=== PATIENT | female | born 1965 | race African-American/Black ===

== ENCOUNTER 2016-02-11 15:34 | Emergency (ER) | payer OTHER, SELFPAY ==
--- NOTE | 2016-02-11 16:55 | ERRECORD ---
[facility] EMERGENCY RECORD HPI SHOULDER (15:59 [facility]) CHIEF COMPLAINT: Patient presents for evaluation of pain, to the left shoulder. HISTORIAN: History provided by patient, 50F presents to the ED with complaints of left arm pain and numbness. She was an inpatient at [facility] with a diagnosis of pulmonary embolism. During her stay she states a contrasted CT study infiltrated through a 22 gauge iV catheter and she has pain over her medial anterior left elbow. Since discharge she has also had numbness over left lateral left arm, primarily distal, but also occasionally proximal shoulder. She was seen by PMD today who ordered an outpatient Xray. She was unable to pay for the outpatient xray so she checked into the ED. Denies chest pain. MECHANISM OF INJURY: Unknown mechanism. LOCATION: Symptoms are localized, on the left. QUALITY: Pain is dull in nature. TIME COURSE: Gradual onset of symptoms, There has been no change in the patient's symptoms over time. ASSOCIATED WITH: infiltration wound on medial aspect of AC fossa on left arm. ROS (16:02 [facility]) CONSTITUTIONAL: Negative constitutional review of systems, Historian denies chills, denies fever. EYES: Negative eye review of systems, Historian denies eye pain, denies vision changes. ENT: Negative ears, nose, throat review of systems, Historian denies rhinorrhea, denies sore throat, denies voice changes. CARDIOVASCULAR: Negative cardiovascular review of systems, Historian denies chest pain, denies palpitations. RESPIRATORY: Negative respiratory review of systems, Historian denies cough, denies shortness of breath. GI: Negative gastrointestinal review of systems, Historian denies abdominal pain, denies constipation, denies diarrhea, denies nausea, denies vomiting. GENITOURINARY FEMALE: Negative genitourinary review of systems, Historian denies dysuria, denies frequency. MUSCULOSKELETAL: reports left arm numbness over radial aspect of left arm. SKIN: Negative skin review of systems, Historian denies rash, denies skin changes. NEUROLOGIC: Negative neurologic review of systems, Historian denies headache, denies mental status changes, denies paralysis, denies paresthesias, denies sensory changes. HEMO/LYMPHATIC: Normal hematologic/lymphatic system review, Historian denies abnormal blood clotting. ALLERGIC/IMMUNOLOGIC: Normal allergy/immunologic system review, Historian denies frequent infections. PAST MEDICAL HISTORY (15:56 [facility]) MEDICAL HISTORY: Flu vaccine up to date, Tetanus not up to &a-1R&a+25V*p+0X*v5137Z*c202B*c15G*c2P*p-0X&a-25V&a+1R Name: Charlie Fox : 1965 F50 MedRec: [id number] AcctNum: [id number] Prepared: WedFeb 11, 2016 17:00 by Interface Page 1 of 4 pMD [facility] EMERGENCY RECORD date, Pneumococcal vaccine not up to date, Past medical history includes gastrointestinal disease, gastroesophageal reflux disease, Past medical history includes history of hypertension. DVT. FEMALE SURGICAL HISTORY: Left Knee sx. PSYCHIATRIC HISTORY: No previous psychiatric history. SOCIAL HISTORY: Patient drinks socially, rarely, Patient denies drug use, Patient has no smoking history. KNOWN ALLERGIES ALLERGIES: (Unconfirmed) FOOD ALLERGIES: (Unconfirmed) LATEX ALLERGY? (Unconfirmed) lisinopril: Reaction: Nausea, Severity: Mild, Source: Patient No Known Drug Allergy (Unconfirmed) CURRENT MEDICATIONS No recorded medications VITAL SIGNS VITAL SIGNS: BP: 161/105, Pulse: 87, Resp: 20 (Non-Labored), Temp: 99.2 (Oral), Pain: 8, O2 sat: 98 on Room Air, Time: 02/11/2016 15:51. (15:51 WJAN) BP: 152/87, Pulse: 82, Resp: 20, Pain: 8, O2 sat: 99 on Room Air, Time: 02/11/2016 16:16. (16:16 AHOO) BP: 170/88, Pulse: 82, Resp: 20, Temp: 99.2 (Oral), Pain: 8, O2 sat: 99.2 on Room Air, Time: 02/11/2016 16:42. (16:42 AHOO) PHYSICAL EXAM (16:02 [facility]) CONSTITUTIONAL: Vital signs reviewed, Patient afebrile, Pulse normal, Blood pressure normal, Respiratory rate normal, Patient appears non toxic, Patient appears pain free, Patient alert and oriented to person, place and time. HEAD: Head exam normal, Head exam included findings of head atraumatic, normocephalic. EYES: Eye exam normal, Eye exam included findings of eyelids normal to inspection, Pupils equally round and reactive to light, Extraocular muscles intact, no nystagmus. ENT: ENT exam normal, Ear exam normal, external ear normal, tympanic membranes normal, no bleeding, Pharynx exam normal, Uvula exam normal, Tonsil exam normal, Mouth exam normal, mucous membranes moist, teeth normal. NECK: Neck exam normal, Neck exam included findings of normal range of motion, Trachea midline, no meningeal signs, no cervical adenopathy, no tenderness. RESPIRATORY CHEST: Respiratory and chest exam normal, Respiratory exam included findings of no respiratory distress, Breath sounds clear. CARDIOVASCULAR: Cardiovascular assessment normal, Cardiovascular exam included findings of heart rate regular rate and rhythm, Heart &a-1R&a+25V*p+0X*l5610W*c202B*c15G*c2P*p-0X&a-25V&a+1R Name: Charlie Fox : 1965 F50 MedRec: [id number] AcctNum: [id number] Prepared: Arsalan Feb 11, 2016 17:00 by Interface Page 2 of 4 pMD [facility] RECORD sounds normal. ABDOMEN FEMALE: Abdominal exam included findings of abdomen nontender, Bowel sounds normal, no distension, no mass, no pulsatile masses, no peritoneal signs, no rigidity, no guarding, no rebound, Rovsing's sign absent. BACK: Back exam normal, Back exam included findings of normal inspection, range of motion normal, no tenderness. UPPER EXTREMITY: medial aspect of AC fossa has an infiltration injury with some surrounding erythema and central area of skin sloughing. radial aspect of same arm has reported numbness. No pain to palpation, no signs of compartment syndrome. LOWER EXTREMITY: Lower extremity exam normal, Lower extremity exam included findings of inspection normal, Range of motion normal, Motor strength normal, Sensation intact, Posterior tibial pulse normal, Pedal pulse normal. NEURO: Neuro exam normal, Neuro exam findings include patient oriented to person, place and time, Speech normal, Gait normal, Cranial nerves intact, no focal motor deficits, no focal sensory deficits. SKIN: Skin exam normal, Skin exam included findings of skin warm, dry, and normal in color, no rash, left arm medial AC fossa has burned appearance with surrounding erythema. PSYCHIATRIC: Psychiatric exam normal, Normal affect. EKG INTERPRETATION (16:43 [facility]) 12 LEAD EKG INTERPRETATION: Interpretation: normal EKG, Conduction normal, ST segments normal. DOCTOR NOTES (16:40 [facility]) TEXT: patient presented with left arm neuropathy. Minimal concern for cardiac etiology based on history and recent negative inpatient cardiac workup. Believe the neuropathy is either localized neuropraxia secondary to the contrast infiltration or also possibly cervical radiculopathy. She has no signs of arterial compromise, and the infiltration injury appears to be improving. Appropriate for outpatient follow up. PATIENT PLAN: The patient will be discharged, The patient will follow up with primary care physician. DATA REVIEWED: Xray data reviewed, Reviewed EKG. PROBLEM LIST No recorded problems DIAGNOSIS (16:38 [facility]) FINAL: PRIMARY: RADICULOPATHY SITE UNSPECIFIED. PRESCRIPTION No recorded prescriptions DISPOSITION &a-1R&a+25V*p+0X*v6586M*c202B*c15G*c2P*p-0X&a-25V&a+1R Name: Dominique Charlie : 1965 [facility] MedRec: [id number] AcctNum: [id number] Prepared: WedFeb 11, 2016 17:00 by Interface Page 3 of 4 pMD [facility] EM[facility] RECORD PATIENT: Disposition Type: Discharge, Disposition: *Discharge Home. (16:38 [facility]) Patient left the department. (16:57 [facility]) Logan: MARCIA=BABS Quintana, May [facility]=MD Miranda, Jose HEART=ELYSE Dueñas, Alaina &a-1R&a+25V*p+0X*v7416M*c202B*c15G*c2P*p-0X&a-25V&a+1R Name: Charlie Fox : 1965 [facility] MedRec: [id number] AcctNum: [id number] Prepared: WedFeb 11, 2016 17:00 by Interface Page 4 of 4 pMD MTDD
--- NOTE | 2016-02-11 17:03 | PICIS ---
[facility]ORD TRIAGE (WedFeb 11, 2016 15:53 [facility]) TRIAGE NOTES: Pt reports recent IV and CT, sore at IV site. PCP ordered xray of site. (WedFeb 11, 2016 15:53 WJAN) PATIENT: NAME: Charlie Fox, AGE: 50, GENDER: female, : Sat 1965, TIME OF GREET: WedFeb 11, 2016 15:35, PREFERRED LANGUAGE: Arabic, ETHNICITY: Not or , ECODE BILLING MAP: [facility], SSN: [id number], Zip Code: [address], KG WEIGHT: 119.75, PHONE: , , , PERSON ID: [id number], PCP: MD Lino Kyle. (WedFeb 11, 2016 15:53 WJAN) COMPLAINT: Left Arm Pain. (WedFeb 11, 2016 15:53 WJAN) ADMISSION: URGENCY: 3 Urgent, ADMISSION SOURCE: Home, TRANSPORT: Walk-in, BED: TRIAGE. (WedFeb 11, 2016 15:53 WJAN) IMMUNIZATIONS: Flu vaccine up to date, Tetanus not up to date, Pneumococcal vaccine not up to date. (15:56 WJAN) SIRS SCORING: Heart Rate 55-109 (0), Temp range 96.8-101.1 (0), respiratory rate 12-24 (0), Mental Status altered: no (0), Infection or Suspected Infection: No. (15:56 WJAN) TRIAGE SCREENING: Patient denies suicidal ideation, Patient denies presence of domestic violence. (15:56 WJAN) LMP: Last menstrual period: 02/08/2016. (15:56 WJAN) PROVIDERS: TRIAGE NURSE: Alaina Dueñas RN. (WedFeb 11, 2016 15:53 WJAN) VITAL SIGNS: BP 161/105, Pulse 87, Resp 20, (Non-Labored), Temp 99.2, (Oral), Pain 8, O2 Sat 98, on Room Air, Time 02/11/2016 15:51. (15:51 WJAN) PREVIOUS VISIT ALLERGIES: No Known Drug Allergy. (WedFeb 11, 2016 15:53 WJAN) No Known Drug Allergy. (15:56 WJAN) KNOWN ALLERGIES ALLERGIES: (Unconfirmed) FOOD ALLERGIES: (Unconfirmed) LATEX ALLERGY? (Unconfirmed) lisinopril: Reaction: Nausea, Severity: Mild, Source: Patient No Known Drug Allergy (Unconfirmed) CURRENT MEDICATIONS No recorded medications VITAL SIGNS VITAL SIGNS: BP: 161/105, Pulse: 87, Resp: 20 (Non-Labored), Temp: 99.2 (Oral), Pain: 8, O2 sat: 98 on Room Air, Time: 02/11/2016 15:51. (15:51 WJAN) BP: 152/87, Pulse: 82, Resp: 20, Pain: 8, O2 sat: 99 on Room Air, Time: 02/11/2016 16:16. (16:16 AHOO) BP: 170/88, Pulse: 82, Resp: 20, Temp: 99.2 (Oral), Pain: 8, O2 sat: 99.2 on Room Air, Time: 02/11/2016 16:42. (16:42 AHOO) &a-1R&a+25V*p+0X*a2930S*c202B*c15G*c2P*p-0X&a-25V&a+1R Name: Charlie Fox : 1965 F50 MedRec: [id number] AcctNum: [id number] Prepared: Arsalan Feb 11, 2016 17:05 by Interface Page 1 of 5 D [facility] EMERGENC[facility] RECORD NURSING PROCEDURE: EKG CHART (16:26 AHOO) PATIENT IDENTIFIER: Patient actively involved in identification process, Patient's identity verified by patient stating name, Patient's identity verified by patient stating date, Patient's identity verified by hospital ID bracelet. EKG: EKG indicated for left arm pain, 12 lead EKG performed on the left chest, done by KAITLIN HUMMEL LVN, first EKG. FOLLOW-UP: After procedure, EKG for interpretation given to Dr. DR CHAND. NURSING PROCEDURE: TRANSPORT TO TESTS PATIENT IDENTIFIER: Patient's identity verified by patient stating name, Patient's identity verified by patient stating date, Patient's identity verified by hospital ID bracelet. (16:04 WJAN) TRANSPORT TO TESTS: Patient transported to x-ray, via wheelchair, Accompanied by x-ray food service technician. (16:04 [facility]FE[facility]) FOLLOW-UP: After procedure, patient returned to emergency department. (16:15 ALVARADO) SAFETY: Side rails up, Cart/Stretcher in lowest position, Family at bedside, Call light within reach, Hospital ID band on. (16:04 [facility]FEB) ORDER DETAILS Order Name: EKG 12 Lead in Emergency Room, Status: Active, Time: 16:37 02/11/2016, User: ALVARADO, - Ordered for: MD Chand Jason, - Entered by: BABS Hummel, May - WedFeb 11, 2016 16:37, - Quantity: 1, Order Name: XR Cervical Spine 4 View Min, Status: Active, Time: 15:57 02/11/2016, User: DAVE, - Ordered for: MD Chand Jason, - Entered by: MD Chand Jason - WedFeb 11, 2016 15:57, - Quantity: 1. HPI SHOULDER (15:59 DAVE) CHIEF COMPLAINT: Patient presents for evaluation of pain, to the left shoulder. HISTORIAN: History provided by patient, 50F presents to the ED with complaints of left arm pain and numbness. She was an inpatient at [facility] with a diagnosis of pulmonary embolism. During her stay she states a contrasted CT study infiltrated through a 22 gauge iV catheter and she has pain over her medial anterior left elbow. Since discharge she has also had numbness over left lateral left arm, primarily distal, but also occasionally proximal shoulder. She was seen by PMD today who ordered an outpatient Xray. She was unable to pay for the outpatient xray so she checked into the ED. Denies chest pain. MECHANISM OF INJURY: Unknown mechanism. LOCATION: Symptoms are localized, on the &a-1R&a+25V*p+0X*o3076Q*c202B*c15G*c2P*p-0X&a-25V&a+1R Name: Charlie Fox : 1965 F50 MedRec: [id number] AcctNum: [id number] Prepared: WedFeb 11, 2016 17:05 by Interface Page 2 of 5 pMD [facility] EMERGENC[facility] RECORD left. QUALITY: Pain is dull in nature. TIME COURSE: Gradual onset of symptoms, There has been no change in the patient's symptoms over time. ASSOCIATED WITH: infiltration wound on medial aspect of AC fossa on left arm. ROS (16:02 [facility]) CONSTITUTIONAL: Negative constitutional review of systems, Historian denies chills, denies fever. EYES: Negative eye review of systems, Historian denies eye pain, denies vision changes. ENT: Negative ears, nose, throat review of systems, Historian denies rhinorrhea, denies sore throat, denies voice changes. CARDIOVASCULAR: Negative cardiovascular review of systems, Historian denies chest pain, denies palpitations. RESPIRATORY: Negative respiratory review of systems, Historian denies cough, denies shortness of breath. GI: Negative gastrointestinal review of systems, Historian denies abdominal pain, denies constipation, denies diarrhea, denies nausea, denies vomiting. GENITOURINARY FEMALE: Negative genitourinary review of systems, Historian denies dysuria, denies frequency. MUSCULOSKELETAL: reports left arm numbness over radial aspect of left arm. SKIN: Negative skin review of systems, Historian denies rash, denies skin changes. NEUROLOGIC: Negative neurologic review of systems, Historian denies headache, denies mental status changes, denies paralysis, denies paresthesias, denies sensory changes. HEMO/LYMPHATIC: Normal hematologic/lymphatic system review, Historian denies abnormal blood clotting. ALLERGIC/IMMUNOLOGIC: Normal allergy/immunologic system review, Historian denies frequent infections. PAST MEDICAL HISTORY (15:56 WJAN) MEDICAL HISTORY: Flu vaccine up to date, Tetanus not up to date, Pneumococcal vaccine not up to date, Past medical history includes gastrointestinal disease, gastroesophageal reflux disease, Past medical history includes history of hypertension. DVT. FEMALE SURGICAL HISTORY: Left Knee sx. PSYCHIATRIC HISTORY: No previous psychiatric history. SOCIAL HISTORY: Patient drinks socially, rarely, Patient denies drug use, Patient has no smoking history. PHYSICAL EXAM (16:02 [facility]) CONSTITUTIONAL: Vital signs reviewed, Patient afebrile, Pulse normal, Blood pressure normal, Respiratory rate normal, Patient appears non toxic, Patient appears pain free, Patient alert and oriented to person, place and time. &a-1R&a+25V*p+0X*y4312V*c202B*c15G*c2P*p-0X&a-25V&a+1R Name: Charlie Fox : 1965 F50 MedRec: [id number] AcctNum: [id number] Prepared: Arsalan Feb 11, 2016 17:05 by Interface Page 3 of 5 D [facility] EMERGENC[facility] RECORD HEAD: Head exam normal, Head exam included findings of head atraumatic, normocephalic. EYES: Eye exam normal, Eye exam included findings of eyelids normal to inspection, Pupils equally round and reactive to light, Extraocular muscles intact, no nystagmus. ENT: ENT exam normal, Ear exam normal, external ear normal, tympanic membranes normal, no bleeding, Pharynx exam normal, Uvula exam normal, Tonsil exam normal, Mouth exam normal, mucous membranes moist, teeth normal. NECK: Neck exam normal, Neck exam included findings of normal range of motion, Trachea midline, no meningeal signs, no cervical adenopathy, no tenderness. RESPIRATORY CHEST: Respiratory and chest exam normal, Respiratory exam included findings of no respiratory distress, Breath sounds clear. CARDIOVASCULAR: Cardiovascular assessment normal, Cardiovascular exam included findings of heart rate regular rate and rhythm, Heart sounds normal. ABDOMEN FEMALE: Abdominal exam included findings of abdomen nontender, Bowel sounds normal, no distension, no mass, no pulsatile masses, no peritoneal signs, no rigidity, no guarding, no rebound, Rovsing's sign absent. BACK: Back exam normal, Back exam included findings of normal inspection, range of motion normal, no tenderness. UPPER EXTREMITY: medial aspect of AC fossa has an infiltration injury with some surrounding erythema and central area of skin sloughing. radial aspect of same arm has reported numbness. No pain to palpation, no signs of compartment syndrome. LOWER EXTREMITY: Lower extremity exam normal, Lower extremity exam included findings of inspection normal, Range of motion normal, Motor strength normal, Sensation intact, Posterior tibial pulse normal, Pedal pulse normal. NEURO: Neuro exam normal, Neuro exam findings include patient oriented to person, place and time, Speech normal, Gait normal, Cranial nerves intact, no focal motor deficits, no focal sensory deficits. SKIN: Skin exam normal, Skin exam included findings of skin warm, dry, and normal in color, no rash, left arm medial AC fossa has burned appearance with surrounding erythema. PSYCHIATRIC: Psychiatric exam normal, Normal affect. EVENTS TRANSFER: Triage to Emergency Triage. (WedFeb 11, 2016 15:53 WJAN) Emergency Triage to Emergency Room -01. (15:56 WJAN) Removed from Emergency Emergency Room -01. (16:57 AHOO) EKG INTERPRETATION (16:43 [facility]) 12 LEAD EKG INTERPRETATION: Interpretation: normal EKG, Conduction normal, ST segments normal. &a-1R&a+25V*p+0X*m0747J*c202B*c15G*c2P*p-0X&a-25V&a+1R Name: Charlie Fox : 1965 F50 MedRec: [id number] AcctNum: [id number] Prepared: WedFeb 11, 2016 17:05 by Interface Page 4 of 5 pMD [facility] EM[facility] RECORD DOCTOR NOTES (16:40 [facility]) TEXT: patient presented with left arm neuropathy. Minimal concern for cardiac etiology based on history and recent negative inpatient cardiac workup. Believe the neuropathy is either localized neuropraxia secondary to the contrast infiltration or also possibly cervical radiculopathy. She has no signs of arterial compromise, and the infiltration injury appears to be improving. Appropriate for outpatient follow up. PATIENT PLAN: The patient will be discharged, The patient will follow up with primary care physician. DATA REVIEWED: Xray data reviewed, Reviewed EKG. PROBLEM LIST No recorded problems DIAGNOSIS (16:38 [facility]) FINAL: PRIMARY: RADICULOPATHY SITE UNSPECIFIED. DISPOSITION PATIENT: Disposition Type: Discharge, Disposition: *Discharge Home. (16:38 [facility]) Patient left the department. (16:57 AHOO) INSTRUCTION (16:39 [facility]) DISCHARGE: RADICULOPATHY, CERVICAL. FOLLOWUP: MD Holland, [facility], [address] [place] [address], . SPECIAL: Follow up with Dr. Lino. Hot pack on posterior neck. Return to the ED if you develop worsening pain or numbness. PRESCRIPTION No recorded prescriptions ADMIN (16:43 [facility]) DIGITAL SIGNATURE: MD Chand Jason. Logan: [facility]=BABS Hummel, May [facility]=MD Chand Jason WJAN=ELYSE Dueñas, Alaina &a-1R&a+25V*p+0X*a9680Y*c202B*c15G*c2P*p-0X&a-25V&a+1R Name: Charlie Fox : 1965 F50 MedRec: [id number] AcctNum: [id number] Prepared: Arsalan Feb 11, 2016 17:05 by Interface Page 5 of 5 pMD MTDD
--- NOTE | 2016-02-11 20:33 | RAD ---
CERVICAL SPINE FIVE VIEWS 02/11/16 No acute fracture was appreciated, though the sensitivity of this study is slightly reduced. The pos terior elements of C7 are not seen optimally. The C1 to dens distance is normal and the soft tissues are normal in thickness. Disc space narrowing is present at C4-C5 and C6-C7. Anterior osteophytes are prominent at C4 and bel ow. The oblique views show neural foraminal narrowing bilaterally by osteophytes at C5-C5, probably a little worse on the left than the right. A lesser degree of narrowing is suggested at C3-C4 on the right. 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 POS: HOME
== END 2016-02-11 16:52 | disposition home or self-care (01) ==
LOC: BURERS 15:34
DX: M54.10 Radiculopathy, site unspecified (principal); K21.9 Gastro-esophageal reflux disease without esophagitis; Z86.718 Personal history of other venous thrombosis and embolism; Z79.01 Long term (current) use of anticoagulants; Z79.899 Other long term (current) drug therapy
CPT/HCPCS: 72050; 93005

== ENCOUNTER 2016-03-24 10:22 | Emergency (ER) | payer BC, SELFPAY ==
[2016-03-24] MEDS ORDERED: Acetaminophen/Codeine 30-300mg Tablet ONE (11:38)
== END 2016-03-24 12:08 | disposition home or self-care (01) ==
LOC: BURERS 10:22
DX: J02.8 Acute pharyngitis due to other specified organisms (principal); B97.89 Other viral agents as the cause of diseases classified elsewhere; K21.9 Gastro-esophageal reflux disease without esophagitis; I10 Essential (primary) hypertension; Z86.718 Personal history of other venous thrombosis and embolism; Z79.899 Other long term (current) drug therapy
CPT/HCPCS: 87430; 99283

== ENCOUNTER 2016-09-22 16:52 | Emergency (ER) | payer BC ==
[2016-09-22] MEDS ORDERED: Orphenadrine Citrate 60 MG/2 ML VIAL ONE (17:16)
[2016-09-22] MEDS ORDERED: Ketorolac Tromethamine 30 MG/ML VIAL ONE (17:16)
== END 2016-09-22 17:47 | disposition home or self-care (01) ==
LOC: BURERS 16:52
DX: G57.02 Lesion of sciatic nerve, left lower limb (principal); K21.9 Gastro-esophageal reflux disease without esophagitis; I10 Essential (primary) hypertension; F41.9 Anxiety disorder, unspecified; Z86.718 Personal history of other venous thrombosis and embolism
CPT/HCPCS: 96372; J1885; J2360

== ENCOUNTER 2019-03-14 14:31 | Emergency (ER) | payer MEDICARE ==
[2019-03-14] MEDS ORDERED: Tetracaine 0.5% OPHTH SOLN/PF 4 ML BOT ONE (14:41)
[2019-03-14] MEDS ORDERED: Fluorescein Opthalmic Strip ONE (14:41)
[2019-03-14] MEDS ORDERED: Neomycin-Polymyxin-Hc 7.5 ML BOT ONE (14:50)
== END 2019-03-14 14:55 | disposition home or self-care (01) ==
LOC: BURERS 14:31
DX: T15.12XA Foreign body in conjunctival sac, left eye, initial encounter (principal); K21.9 Gastro-esophageal reflux disease without esophagitis; I10 Essential (primary) hypertension; D64.9 Anemia, unspecified; G47.00 Insomnia, unspecified; F41.9 Anxiety disorder, unspecified; Z86.718 Personal history of other venous thrombosis and embolism
CPT/HCPCS: 65205